=== PATIENT | male | born 1950 | race Caucasian/White ===

== ENCOUNTER 2021-09-18 17:50 | Inpatient (IN) ==
[2021-09-18] MEDS ORDERED: Isovue-370 500 ML BOTTLE IVP ONE ×2 (20:43→21:53)
[2021-09-18] MEDS ORDERED: Prochlorperazine 10 MG/2 ML VIAL IVP STA (20:44)
[2021-09-18 21:14] LABS: Basophils % 0.1 %; Eosinophils % 0.1 %; Hematocrit 43.5 % (37.5-50.1); Hemoglobin 14.9 g/dL (12.9-16.9); Immature Granulocytes % 0.6 % (0-4); Lymphocytes # 1.3 K/mcL (0.6-4.6); Lymphocytes % 8.4 %; Mean Corpuscular HGB Conc 34.3 g/dL (31.6-35.5); Mean Corpuscular Hemoglobin 30.8 pg (28.0-33.3); Mean Corpuscular Volume 90.1 fL (83.0-100.0); Mean Platelet Volume 9.2 fL (9.4-12.4); Monocytes # 1.7 K/mcL (0.0-1.3); Monocytes % 11.2 %; Neutrophils # 12.1 K/mcL (1.6-8.9); Platelet Count 317 K/mcL (140-400); Red Blood Count 4.83 M/mcL (4.19-5.50); Red Cell Distribution Width 13.6 % (11.5-14.5); Segmented Neutrophils % 79.6 %; White Blood Count 15.2 K/mcL (4.3-11.1)
[2021-09-18 21:37] LABS: Alanine Aminotransferase 14 Units/L (7-52); Albumin 3.9 g/dL (3.5-5.7); Albumin/Globulin Ratio 0.9 (1.1-2.2); Alkaline Phosphatase 49 Units/L (34-104); Aspartate Amino Transferase 20 Units/L (13-39); BUN/Creatinine Ratio 21 (6-26); Bilirubin,Direct 0.3 mg/dL (0.0-0.2); Bilirubin,Indirect 0.8 mg/dL (0.0-1.0); Bilirubin,Total 1.1 mg/dL (0.3-1.0); Blood Urea Nitrogen 29 mg/dL (8-23); Calcium 9.6 mg/dL (8.6-10.3); Carbon Dioxide 26 mEq/L (23-29); Chloride 97 mEq/L (98-107); Globulin 4.4 g/dL (2.4-3.5); Glucose 127 mg/dL (70-105); Lipase 11 Units/L (11-82); Magnesium 1.4 mg/dL (1.6-2.6); Osmolality,Calculated 289 (280-300); Potassium 3.5 mEq/L (3.5-5.1); Sodium 136 mEq/L (136-145); Total Protein 8.3 g/dL (6.4-8.9); Troponin I 0.09 ng/mL (< 0.04); eGFR For African Americans > 60 (> 60); eGFR For Non-African Americans 50 (> 60)
[2021-09-18] MEDS ORDERED: Aspirin 325 MG TABLET PO ONE (22:55)
[2021-09-18] MEDS ORDERED: 0.9 % Sodium Chloride 1,000 ML IV ONE (22:55)
[2021-09-18 23:05] LABS: Influenza A PCR Negative (Negative); Influenza B PCR Negative (Negative); Resp. Syncytial Virus PCR Negative (Negative)
[2021-09-18 23:12] LABS: SARS-CoV-2 by PCR (In House) Negative (Negative)
[2021-09-19] MEDS ORDERED: Melatonin 3 MG TABLET PO PRN (00:10)
[2021-09-19] MEDS ORDERED: Naloxone 0.4 MG/ML INJ IVP PRN (00:10)
[2021-09-19 00:15] LABS: Bilirubin,Urine Negative (Negative); Blood,Urine Negative (Negative); Clarity,Urine Clear (Clear); Color,Urine Yellow (Yellow); Glucose,Urine (UA) Normal (Normal); Ketones,Urine Negative (Negative); Leukocyte Esterase,Urine Negative (Negative); Mucus,Urine Few per lpf (None-Few); Nitrite,Urine Negative (Negative); Protein,Urine 50 mg/dL (Neg-Trace); RBC,Urine 0-3 per hpf (0-3); Specific Gravity,Urine > 1.030 (1.010-1.025); Urobilinogen,Urine Normal (Normal); WBC,Urine 0-3 per hpf (0-3)
[2021-09-19] MEDS ORDERED: 0.9 % Sodium Chloride 1,000 ML ONE (00:21)
[2021-09-19] MEDS ORDERED: 0.9 % Sodium Chloride 1,000 ML IVC SCH (02:00)
[2021-09-19] MEDS: Melatonin 3 MG TABLET PO PRN ×2 (02:01→22:00)
[2021-09-19] MEDS: QUEtiapine Fumarate 100 MG TABLET PO SCH ×2 (02:01→22:01)
[2021-09-19] MEDS ORDERED: Ringers Solution, Lactated 1,000 ML IVC ONE ×2 (03:00→03:01)
[2021-09-19] MEDS ORDERED: 0.9 % Sodium Chloride 500 ML IVC ONE (03:02)
[2021-09-19] MEDS ORDERED: Perflutren Lipid Microsphere 1.3 ML in 0.9 % Sodium Chloride 8.7 ML IVP PRN (03:03)
[2021-09-19] MEDS ORDERED: Dextrose Gel 15 GM/37.5 ML TUBE PO PRN ×2 (03:06)
[2021-09-19] MEDS ORDERED: D5% in Water 1,000 ML IVC PRN (03:06)
[2021-09-19] MEDS ORDERED: *HR* Dextrose 50 % in Water (Syg) 50 ML SYRINGE IVP PRN (03:06)
[2021-09-19 04:02] LABS: Basophils % 0.2 %; Eosinophils % 0.1 %; Immature Granulocytes % 0.5 % (0-4); Lymphocytes # 1.3 K/mcL (0.6-4.6); Lymphocytes % 11.1 %; Mean Corpuscular HGB Conc 33.4 g/dL (31.6-35.5); Mean Corpuscular Hemoglobin 30.1 pg (28.0-33.3); Mean Platelet Volume 9.3 fL (9.4-12.4); Monocytes # 1.5 K/mcL (0.0-1.3); Monocytes % 13.1 %; Neutrophils # 8.6 K/mcL (1.6-8.9); Platelet Count 238 K/mcL (140-400); Red Blood Count 4.22 M/mcL (4.19-5.50); Red Cell Distribution Width 13.7 % (11.5-14.5); White Blood Count 11.4 K/mcL (4.3-11.1)
[2021-09-19 04:05] LABS: Hemoglobin 12.7 g/dL (12.9-16.9)
[2021-09-19 04:20] LABS: BUN/Creatinine Ratio 26 (6-26); Blood Urea Nitrogen 33 mg/dL (8-23); Calcium 8.4 mg/dL (8.6-10.3); Carbon Dioxide 25 mEq/L (23-29); Chloride 99 mEq/L (98-107); Glucose 123 mg/dL (70-105); Magnesium 1.3 mg/dL (1.6-2.6); Osmolality,Calculated 289 (280-300); Phosphorous 2.5 mg/dL (2.7-4.5); Potassium 3.2 mEq/L (3.5-5.1); Sodium 135 mEq/L (136-145); eGFR For African Americans > 60 (> 60); eGFR For Non-African Americans 56 (> 60)
[2021-09-19] MEDS: Vancomycin 1,750 MG/517.5 ML IV.SOLN IVPB SCH (06:07)
[2021-09-19] MEDS: Cholecalciferol (D-3) 1,000 UNIT (25MCG) TABLET PO SCH (07:47)
[2021-09-19] MEDS: Aspirin Enteric Coated 81 MG Tablet PO SCH ×2 (07:47→22:00)
[2021-09-19] MEDS: Cefepime HCl 2,000 MG in Water for inj. (sterile) 20 ML IVP SCH ×2 (07:47→15:36)
[2021-09-19] MEDS ORDERED: NIFEdipine XL (24 HR) 60 MG TAB.ER.24 PO SCH (09:00)
[2021-09-19] MEDS: Ondansetron 4 MG/2 ML VIAL IVP PRN ×2 (11:31→21:24)
[2021-09-19] MEDS ORDERED: *HR* Promethazine 25 MG/ML VIAL IM ONE (14:27)
[2021-09-20] MEDS: Cefepime HCl 2,000 MG in Water for inj. (sterile) 20 ML IVP SCH (00:15)
[2021-09-20 04:25] LABS: Basophils % 0.2 %; Eosinophils # 0.1 K/mcL (0.0-0.6); Eosinophils % 0.5 %; Hematocrit 37.7 % (37.5-50.1); Hemoglobin 12.8 g/dL (12.9-16.9); Immature Granulocytes % 0.4 % (0-4); Lymphocytes # 1.1 K/mcL (0.6-4.6); Lymphocytes % 8.7 %; Mean Corpuscular Hemoglobin 30.8 pg (28.0-33.3); Mean Corpuscular Volume 90.6 fL (83.0-100.0); Mean Platelet Volume 9.3 fL (9.4-12.4); Monocytes # 1.5 K/mcL (0.0-1.3); Monocytes % 11.6 %; Neutrophils # 10.2 K/mcL (1.6-8.9); Platelet Count 291 K/mcL (140-400); Red Blood Count 4.16 M/mcL (4.19-5.50); Red Cell Distribution Width 13.6 % (11.5-14.5); Segmented Neutrophils % 78.6 %
[2021-09-20 04:43] LABS: BUN/Creatinine Ratio 29 (6-26); Blood Urea Nitrogen 33 mg/dL (8-23); Calcium 8.6 mg/dL (8.6-10.3); Carbon Dioxide 24 mEq/L (23-29); Chloride 99 mEq/L (98-107); Glucose 127 mg/dL (70-105); Magnesium 1.8 mg/dL (1.6-2.6); Osmolality,Calculated 285 (280-300); Phosphorous 2.4 mg/dL (2.7-4.5); Potassium 3.1 mEq/L (3.5-5.1); Sodium 133 mEq/L (136-145); eGFR For African Americans > 60 (> 60); eGFR For Non-African Americans > 60 (> 60)
[2021-09-20] MEDS ORDERED: *HR* Promethazine 25 MG/ML VIAL IM ONE (04:47)
[2021-09-20] MEDS: Vancomycin 1,750 MG/517.5 ML IV.SOLN IVPB SCH (04:54)
[2021-09-20 05:04] LABS: Troponin I 0.07 ng/mL (< 0.04)
[2021-09-20] MEDS ORDERED: Potassium Chloride Elixir 20 MEQ/15 ML UDC PO ONE (05:31)
[2021-09-20] MEDS ORDERED: Simethicone 80 MG TAB.CHEW PO PRN (05:32)
[2021-09-20 06:03] LABS: Lipase 11 Units/L (11-82)
[2021-09-20] MEDS: Cholecalciferol (D-3) 1,000 UNIT (25MCG) TABLET PO SCH (08:27)
[2021-09-20] MEDS: Aspirin Enteric Coated 81 MG Tablet PO SCH ×2 (08:27→22:12)
[2021-09-20] MEDS ORDERED: *HR* Promethazine 25 MG/ML VIAL IM PRN (10:33)
[2021-09-20] MEDS: Acetaminophen 325 MG TABLET PO PRN ×2 (11:41→18:46)
[2021-09-20 13:38] LABS: Campylobacter by PCR Not detected (Not detect); E. coli O157 by PCR Not detected (Not detect); Enteroaggregative E.coli(EAEC) Not detected (Not detect); Enteropathogenic E.coli(EPEC) Not detected (Not detect); Enterotoxigenic E.coli (ETEC) Not detected (Not detect); Plesiomonas shigelloides PCR Not detected (Not detect); Salmonella PCR Not detected (Not detect); Shigalike tox-prod E coli STEC Not detected (Not detect); Vibrio PCR Not detected (Not detect); Vibrio cholerae PCR Not detected (Not detect); Yersinia enterocolitica PCR Not detected (Not detect)
[2021-09-20 13:40] LABS: Adenovirus F 40/41 PCR Not detected (Not detect); Astrovirus PCR Not detected (Not detect); C.difficile Toxin A/B Gene PCR DETECTED (Not detect); Cryptosporidium by PCR Not detected (Not detect); Cyclospora cayetanensis PCR Not detected (Not detect); Entamoeba histolytica PCR Not detected (Not detect); Giardia lamblia PCR Not detected (Not detect); Norovirus GI/GII PCR Not detected (Not detect); Rotavirus A PCR Not detected (Not detect); Sapovirus PCR Not detected (Not detect); Shig/EnteroinvasiveE coli EIEC Not detected (Not detect)
[2021-09-20] MEDS: Ondansetron 4 MG/2 ML VIAL IVP SCH ×2 (14:08→22:13)
[2021-09-20] MEDS: Vancomycin Oral Soln 125 MG/2.5 ML UDC PO SCH ×3 (15:01→22:10)
[2021-09-20] MEDS: Ringers Solution, Lactated 1,000 ML IVC SCH (15:02)
[2021-09-20] MEDS ORDERED: *HR* HYDROcodone/Acet 5/325 mg TABLET PO ONE (23:08)
[2021-09-20] MEDS: Melatonin 3 MG TABLET PO SCH (23:46)
[2021-09-20] MEDS: QUEtiapine Fumarate 100 MG TABLET PO SCH (23:46)
[2021-09-21 05:07] LABS: Basophils % 0.2 %; Eosinophils # 0.1 K/mcL (0.0-0.6); Eosinophils % 0.9 %; Hematocrit 34.1 % (37.5-50.1); Hemoglobin 11.7 g/dL (12.9-16.9); Immature Granulocytes % 0.3 % (0-4); Lymphocytes # 1.4 K/mcL (0.6-4.6); Lymphocytes % 15.3 %; Mean Corpuscular HGB Conc 34.3 g/dL (31.6-35.5); Mean Corpuscular Hemoglobin 31.1 pg (28.0-33.3); Mean Corpuscular Volume 90.7 fL (83.0-100.0); Mean Platelet Volume 9.3 fL (9.4-12.4); Monocytes # 1.3 K/mcL (0.0-1.3); Neutrophils # 6.3 K/mcL (1.6-8.9); Platelet Count 276 K/mcL (140-400); Red Blood Count 3.76 M/mcL (4.19-5.50); Red Cell Distribution Width 13.4 % (11.5-14.5); Segmented Neutrophils % 69.3 %; White Blood Count 9.1 K/mcL (4.3-11.1)
[2021-09-21 05:26] LABS: BUN/Creatinine Ratio 33 (6-26); Blood Urea Nitrogen 37 mg/dL (8-23); Calcium 8.4 mg/dL (8.6-10.3); Carbon Dioxide 27 mEq/L (23-29); Chloride 101 mEq/L (98-107); Glucose 105 mg/dL (70-105); Magnesium 1.7 mg/dL (1.6-2.6); Osmolality,Calculated 291 (280-300); Phosphorous 2.1 mg/dL (2.7-4.5); Potassium 3.1 mEq/L (3.5-5.1); Sodium 136 mEq/L (136-145); eGFR For African Americans > 60 (> 60); eGFR For Non-African Americans > 60 (> 60)
[2021-09-21 05:29] LABS: Chol/HDL Ratio 4.5 (0-4.9)
[2021-09-21 05:41] LABS: Thyroid Stimulating Hormone 0.997 mcIU/mL (0.340-5.600)
[2021-09-21 05:48] LABS: Estimated Average Glucose 126 mg/dl
[2021-09-21] MEDS ORDERED: *HR* HYDROcodone/Acet 5/325 mg TABLET PO ONE (05:54)
[2021-09-21] MEDS: Ringers Solution, Lactated 1,000 ML IVC SCH (07:53)
[2021-09-21] MEDS ORDERED: *HR* HYDROcodone/Acet 5/325 mg TABLET PO PRN (08:50)
[2021-09-21] MEDS: Vancomycin Oral Soln 125 MG/2.5 ML UDC PO SCH ×4 (09:26→22:47)
[2021-09-21] MEDS: Cholecalciferol (D-3) 1,000 UNIT (25MCG) TABLET PO SCH (09:26)
[2021-09-21] MEDS: Lactobacillus 1 EACH CAP.SPRINK PO SCH (09:26)
[2021-09-21] MEDS: Aspirin Enteric Coated 81 MG Tablet PO SCH ×2 (09:26→22:46)
[2021-09-21] MEDS: Ondansetron 4 MG/2 ML VIAL IVP SCH ×3 (09:27→22:47)
[2021-09-21] MEDS ORDERED: HYDROcodone BIT/Homatropine 5 MG TABLET PO PRN (11:05)
[2021-09-21] MEDS: QUEtiapine Fumarate 100 MG TABLET PO SCH (22:46)
[2021-09-21] MEDS: Melatonin 3 MG TABLET PO SCH (22:46)
[2021-09-22 03:42] LABS: Basophils % 0.3 %; Eosinophils # 0.1 K/mcL (0.0-0.6); Eosinophils % 0.7 %; Hematocrit 31.6 % (37.5-50.1); Hemoglobin 10.7 g/dL (12.9-16.9); Immature Granulocytes % 0.6 % (0-4); Lymphocytes # 1.6 K/mcL (0.6-4.6); Lymphocytes % 16.4 %; Mean Corpuscular HGB Conc 33.9 g/dL (31.6-35.5); Mean Corpuscular Hemoglobin 30.8 pg (28.0-33.3); Mean Corpuscular Volume 91.1 fL (83.0-100.0); Mean Platelet Volume 9.3 fL (9.4-12.4); Monocytes # 1.7 K/mcL (0.0-1.3); Monocytes % 17.4 %; Neutrophils # 6.1 K/mcL (1.6-8.9); Platelet Count 280 K/mcL (140-400); Red Blood Count 3.47 M/mcL (4.19-5.50); Red Cell Distribution Width 13.6 % (11.5-14.5); Segmented Neutrophils % 64.6 %; White Blood Count 9.5 K/mcL (4.3-11.1)
[2021-09-22 04:00] LABS: BUN/Creatinine Ratio 29 (6-26); Blood Urea Nitrogen 32 mg/dL (8-23); Calcium 8.6 mg/dL (8.6-10.3); Carbon Dioxide 29 mEq/L (23-29); Chloride 100 mEq/L (98-107); Glucose 102 mg/dL (70-105); Osmolality,Calculated 287 (280-300); Potassium 3.6 mEq/L (3.5-5.1); Sodium 135 mEq/L (136-145); eGFR For African Americans > 60 (> 60); eGFR For Non-African Americans > 60 (> 60)
[2021-09-22 04:02] LABS: % Iron Saturation 12 % (20-55); Iron 21 mcg/dL (65-175); Transferrin 129 mg/dL (203-362)
[2021-09-22 04:19] LABS: Ferritin 377 ng/mL (20-250)
[2021-09-22 06:43] VITALS: BP 115/49; PULSE 77; TEMP 98.2; O2SAT 93
[2021-09-22] MEDS: Ondansetron 4 MG/2 ML VIAL IVP SCH (09:16)
[2021-09-22] MEDS: Lactobacillus 1 EACH CAP.SPRINK PO SCH (09:16)
[2021-09-22] MEDS: Vancomycin Oral Soln 125 MG/2.5 ML UDC PO SCH ×2 (09:16→14:33)
[2021-09-22] MEDS: Aspirin Enteric Coated 81 MG Tablet PO SCH (09:16)
[2021-09-22] MEDS: Cholecalciferol (D-3) 1,000 UNIT (25MCG) TABLET PO SCH (09:16)
== END 2021-09-22 14:45 | disposition home health service (06) | DRG 871 ==
LOC: EMEROOARM 17:50 → 4WAOSI 17:50 → SUATTDRO 09-19 00:33 → 4WAOSI 09-19 01:17 → SUATTDRO 09-20 15:40
PROVIDERS: ADMIT Internal Medicine; ATTEND Family Medicine